=== PATIENT | male | born 1950 | race Caucasian/White ===

== ENCOUNTER → 2017-01-05 | Outpatient (CLI) | payer OTHER, MEDICAID | LOC: GIMAGING 10:25 | PROVIDERS: ATTEND Registered Nurse | DX: S49.91XA Unspecified injury of right shoulder and upper arm, initial encounter (principal) | CPT/HCPCS: 73030-PO ==

== ENCOUNTER → 2017-01-24 | Outpatient (CLI) | payer OTHER, MEDICAID | LOC: GIMAGING 15:00 | PROVIDERS: ATTEND Family Medicine | DX: M25.511 Pain in right shoulder (principal) | CPT/HCPCS: 73000-PO ==